=== PATIENT | male | born 1990 | race Caucasian/White ===

== ENCOUNTER 2016-12-31 04:03 | Emergency (ER) | payer SELFPAY ==
[2016-12-31] MEDS ORDERED: MORPHINE SULFATE 10 MG/ML INJ IV ONE ×3 (04:18→06:33)
[2016-12-31] MEDS ORDERED: ONDANSETRON HCL INJ/PF 4 MG/2 ML SDV IV ONE ×3 (04:18→06:33)
[2016-12-31] MEDS ORDERED: KETOROLAC TROMETHAMINE INJ/PF 30 MG/1 ML SDV IV ONE (04:18)
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
[2016-12-31] MEDS ORDERED: NORMAL SALINE 1000 ML 1,000 ML IV ONE ×2 (04:28→05:14)
[2016-12-31] MEDS ORDERED: MORPHINE SULFATE 10 MG/ML INJ ONE (05:36)
[2016-12-31] MEDS ORDERED: ONDANSETRON HCL INJ/PF 4 MG/2 ML SDV ONE (05:37)
[2016-12-31 06:24] LABS: AMORPHOUS SEDIMENT,URINE TRACE /HPF; APPEARANCE,URINE TURBID; BILIRUBIN,URINE NEGATIVE (NEGATIVE); GLUCOSE, URINE NEGATIVE (NEGATIVE); KETONES,URINE NEGATIVE (NEGATIVE); LEUKOCYTE ESTERASE,URINE NEGATIVE (NEGATIVE); NITRITE,URINE NEGATIVE (NEGATIVE); PROTEIN,URINE 100 mg/dL (NEGATIVE); URINE SPECIFIC GRAVITY 1.031; UROBILINOGEN,URINE NEGATIVE mg/dL (<2.0)
[2016-12-31] MEDS ORDERED: ONDANSETRON ODT 4 MG TAB (6 TAB/DSPK) PO PRN (06:30)
[2016-12-31] MEDS ORDERED: FLUCONAZOLE 100 MG TABLET PO ONE (06:30)
[2016-12-31] MEDS ORDERED: HYDROCODONE/ACETAMINOPHEN 5-325 MG 6 TAB/DSPK PO PRN (06:30)
[2016-12-31 07:06] VITALS: BP 112/64
== END 2016-12-31 07:07 | disposition home or self-care (01) ==
LOC: ER 04:03
DX: N23 Unspecified renal colic (principal); N50.819 Testicular pain, unspecified; J44.9 Chronic obstructive pulmonary disease, unspecified; R61 Generalized hyperhidrosis; Z87.891 Personal history of nicotine dependence
CPT/HCPCS: 96376; 99283; 96361; 96374; 96375; 87086; 81001; J1885; J2270; J2405; J7030

== ENCOUNTER 2018-05-07 06:50 | Emergency (ER) | payer SELFPAY ==
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
--- NOTE | 2018-05-07 07:47 | RADIOLOGY REPORT (SQ) ---
EXAM DESCRIPTION: XR ANKLE 3 OR MORE VIEWS COMPLETED DATE/TME: 05/07/2018 00:00 CLINICAL HISTORY: 28 years Male, fall COMPARISON: None. Findings: Bones, joints, and soft tissues of the RIGHT XR ANKLE 3 VIEWS appear intact. IMPRESSION: No acute findings.
--- NOTE | 2018-05-07 07:50 | RADIOLOGY REPORT (SQ) ---
EXAM DESCRIPTION: XR FOOT 3 OR MORE VIEWS COMPLETED DATE/TME: 05/07/2018 07:19 CLINICAL HISTORY: 28 years, Male, Injury pain at the base of the fifth metatarsal COMPARISON: None. NUMBER OF VIEWS: Three TECHNIQUE: Three views of the right foot LIMITATIONS: None. FINDINGS: No acute fracture or dislocation. The joint spaces are preserved. There is no radiopaque foreign body. There is no large soft tissue swelling. IMPRESSION: No acute fracture or dislocation copyright 2010 [employer]- All Rights Reserved
[2018-05-07 08:15] VITALS: BP 113/59
== END 2018-05-07 08:14 | disposition home or self-care (01) ==
LOC: ER 06:50
DX: S93.401A Sprain of unspecified ligament of right ankle, initial encounter (principal); X50.0XXA Overexertion from strenuous movement or load, initial encounter; Y93.67 Activity, basketball; Y92.310 Basketball court as the place of occurrence of the external cause
CPT/HCPCS: 99283